=== PATIENT | female | born 1950 | race Caucasian/White ===

== ENCOUNTER 2017-08-02 12:18 | Emergency (ER) | payer MEDICARE, BC ==
[~2017-08-02] VITALS: Ht 167.6 cm; Wt 121.1 kg
[2017-08-02] MEDS ORDERED: TETRACAINE HCL 0.5% OPTH SOLN 4 ML BTL OP ONE (12:30)
[2017-08-02] MEDS ORDERED: FLUORESCEIN SOD(OPTH) 1 MG STRP OP ONE (12:30)
== END 2017-08-02 12:38 | disposition home or self-care (01) ==
LOC: ER 12:21
DX: H11.32 Conjunctival hemorrhage, left eye (principal)
CPT/HCPCS: 99282